=== PATIENT | male | born 1960 | race Two or more races ===

== ENCOUNTER 2018-06-20 06:51 | Emergency (ER) | payer OTHER ==
[~2018-06-20] VITALS: Ht 182.9 cm; Wt 117.9 kg
[2018-06-20] MEDS ORDERED: SYNTHROID137 MCG PO (07:14)
[2018-06-20] MEDS ORDERED: TROPOL PO (07:15)
== END 2018-06-20 12:53 | disposition home or self-care (01) ==
LOC: ER 06:51
DX: N20.1 Calculus of ureter (principal); R10.31 Right lower quadrant pain

== ENCOUNTER 2023-08-20 02:42 | Emergency (ER) | payer OTHER ==
[~2023-08-20] VITALS: Ht 182.9 cm; Wt 122.5 kg
[~2023-08-20 02:42] MED LIST: SYNTHROID137 MCG PO; TROPOL PO
[2023-08-20] MEDS ORDERED: GLIPIZIDE XL5 MG (02:50)
[2023-08-20] MEDS ORDERED: JANUMET 50-1,01 EACH (02:50)
[2023-08-20] MEDS ORDERED: TOPROL XL50 M1 (02:55)
[2023-08-20] MEDS ORDERED: [UNRECOGNIZED DRUG - CODE] (02:56)
[2023-08-20] MEDS ORDERED: FENOFIBRATE150 MG (02:56)
[2023-08-20] MEDS ORDERED: CIALIS5 MG (02:57)
[2023-08-20] MEDS ORDERED: TAMS0.4C (02:57)
[2023-08-20 03:42] LABS: HEMATOCRIT 37.9 % (39.0-48.0); HEMOGLOBIN 12.6 g/dL (13-16.00); MEAN CELL VOLUME 88.7 fL (80.0-100.00); MEAN CORPUSCULAR HEMOGLOBIN 29.4 pg (27.00-32.0); MEAN CORPUSCULAR HGB CONC 33.2 g/dl (32.0-36.0); PLATELET COUNT 190 K/uL (150-450); RED BLOOD COUNT 4.27 M/uL (4.00-6.00); RED CELL DISTRIBUTION WIDTH 13.9 % (11.5-14.5)
[2023-08-20 04:03] LABS: CALCIUM 8.7 mg/dL (8.5-10.1); CREATININE SERUM 1.3 mg/dL (0.70-1.30); GFR 55.94; POTASSIUM 3.74 mEq/L (3.5-5.1)
[2023-08-20 05:05] LABS: URINE APPEARANCE Clear; URINE BILIRRUBIN Small (NEGATIVE); URINE BLOOD Moderate; URINE COLOR Orange; URINE LEUKOCYTE Small; URINE NITRATE Positive; URINE PROTEIN Trace (NEGATIVE)
[2023-08-20 05:09] LABS: URINE BACTERIA 7.5 uL (0.0-1933); URINE EPITHELIAL CELLS 3.5 uL (0.0-38.8); URINE RBC 87.5 uL (0.0-20.8); URINE WBC 5.8 uL (0.0-23.2)
[2023-08-20 05:17] LABS: URINE GLUCOSE 100 MG/DL (NEGATIVE)
[2023-08-20] MEDS ORDERED: CIPRO500 MG PO (08:14)
[2023-08-20] MEDS ORDERED: KETO10TA2 PO (08:14)
== END 2023-08-20 08:28 ==
LOC: ER 02:42
PROVIDERS: General Practice
DX: R10.9 Unspecified abdominal pain (principal); I10 Essential (primary) hypertension; Z87.442 Personal history of urinary calculi; N40.0 Benign prostatic hyperplasia without lower urinary tract symptoms; E11.9 Type 2 diabetes mellitus without complications; Z79.84 Long term (current) use of oral hypoglycemic drugs; N20.1 Calculus of ureter
CPT/HCPCS: 36415; 74176; 96365; 96372; 99284; J1885; J2250; J3490

== ENCOUNTER 2025-09-14 02:39 | Emergency (ER) | payer OTHER ==
[~2025-09-14] VITALS: Ht 182.9 cm; Wt 127.0 kg
[~2025-09-14 02:39] MED LIST changes: +ATORVASTATIN CA20 MG PO; +CIALIS5 MG; +CIPRO500 MG PO; +FENOFIBRATE150 MG; +GLIPIZIDE XL5 MG; +INTESTINEX680 M1 PO; +JANUMET 50-1,01 EACH; +JANUMET 50-1,01 EACH PO; +KETO10TA2 PO; +METOPROLOL SUCC50 MG PO; +ONDANSETRON HCL4 MG PO; +PEPCID AC20 MG PO; +TAMS0.4C; +TOPROL XL50 M1; +TOPROL XL50 M1 PO; +[UNRECOGNIZED DRUG - CODE]; +[UNRECOGNIZED DRUG - CODE] IM
[2025-09-14] MEDS ORDERED: LEVALBUTEROL HCL 0.63 MG/3 ML SOLUTION IH SCH (03:45)
[2025-09-14] MEDS ORDERED: 0.9 % SODIUM CHLORIDE 1,000 ML IV ONE (03:45)
[2025-09-14 04:55] LABS: BASO % 0.4 % (0.1-1.2); EOS # 0.17 (0.04-0.54); EOS % 3.2 % (0.7-7.0); LYMPH # 0.55 (1.18-3.74); LYMPH % 10.3 % (19.3-53.1); MEAN PLATELET VOLUME 11.10 fl (9.4-12.4); MONO # 0.76 (0.24-0.82); NEUT # 3.79 (1.56-6.13); NEUT % 71.2 % (34.0-71.1); RED CELL DISTRIBUTION WIDTH 12.3 % (11.6-14.4)
[2025-09-14 04:59] LABS: MONO % 14.3 % (4.7-12.5)
[2025-09-14 05:29] LABS: ALT/SGPT 27.0 U/L (12-78); AST/SGOT 17.0 U/L (15-37); BILIRUBIN TOTAL 0.62 mg/dL (0.3-1.2); BUN CREA RATIO 12.0 (7.0-25.0); CREATININE SERUM 0.74 mg/dL (0.70-1.30); GFR 106.48; GLOBULINA 3.3 G/DL (2.4-3.5); GLUCOSE FASTING 157.0 mg/dL (65-100); OSMOLALITY SERUM 276.0 MOSM/KG (275-295)
[2025-09-14] MEDS ORDERED: LEVALBUTEROL HCL 0.63 MG/3 ML SOLUTION IH ONE (06:15)
[2025-09-14] MEDS ORDERED: ACETAMINOPHEN 500 MG GEL..CAP PO ONE (08:07)
[2025-09-14 10:59] LABS: URINE APPEARANCE Clear; URINE BILIRRUBIN Negative (NEGATIVE); URINE BLOOD Negative; URINE COLOR Yellow; URINE GLUCOSE Negative (NEGATIVE); URINE KETONE Negative (NEGATIVE); URINE LEUKOCYTE Negative; URINE NITRATE Negative; URINE PROTEIN Negative (NEGATIVE); URINE UROBILINOGEN 0.2 E.U./dl
[2025-09-14 11:00] LABS: URINE WBC 1.9 uL (0.0-23.2)
[2025-09-14 11:51] LABS: COVID-19 AG NEGATIVE (NEGATIVE)
[2025-09-14 12:01] LABS: URINE BACTERIA 1.1 uL (0.0-1933); URINE CAST 0.00 uL (0.0-1.40); URINE EPITHELIAL CELLS 0.4 uL (0.0-38.8); URINE RBC 0.8 uL (0.0-20.8)
[2025-09-14] MEDS ORDERED: FAMOTIDINE/PF 20 MG/2 ML VIAL ONE (13:05)
[2025-09-14] MEDS ORDERED: OSELTAMIVIR PHOSPHATE 75 MG CAPSULE PO ONE (13:05)
[2025-09-14] MEDS ORDERED: ONDANSETRON HCL 2 MG/ML VIAL ONE (13:05)
[2025-09-14] MEDS ORDERED: PEPCID AC20 MG PO (13:23)
[2025-09-14] MEDS ORDERED: OSEL75CA PO (13:23)
[2025-09-14] MEDS ORDERED: INTESTINEX680 M1 PO (13:23)
[2025-09-14] MEDS ORDERED: MUCINEX DM ER1 EACH PO (13:23)
== END 2025-09-14 13:39 | disposition home or self-care (01) ==
LOC: ER
PROVIDERS: General Practice
DX: J10.1 Influenza due to other identified influenza virus with other respiratory manifestations (principal); R50.9 Fever, unspecified; R10.31 Right lower quadrant pain; R06.02 Shortness of breath; Z20.822 Contact with and (suspected) exposure to COVID-19
CPT/HCPCS: 36415; 71046; 74177; 82803; 96365; 96366; 99284; J7030; Q9965